=== PATIENT | female | born 1995 | race Caucasian/White ===

== ENCOUNTER 2018-03-14 22:33 | Emergency (ER) | payer BC, SELFPAY ==
[2018-03-14] MEDS ORDERED: Ondansetron HCl/PF 4 MG/2 ML Vial ONE (22:56)
[2018-03-14] MEDS ORDERED: Morphine 2 MG/ML SYRINGE ONE (22:56)
--- NOTE | 2018-03-14 23:33 | RAD ---
THREE VIEW RIGHT WRIST: 03/14/18 INDICATION: Right wrist deformity, injury and pain. FINDINGS: There is a comminuted, impacted distal radial fracture centered a the metaphyseal region with extensi on to the articular surface. An ulnar styloid avulsion fracture is also present. There is soft tissue swelling. IMPRESSION: Distal radial and ulnar fractures. POS: [facility]
--- NOTE | 2018-03-14 23:34 | RAD ---
TWO VIEW RIGHT ELBOW 03/14/18 INDICATION: Injury, pain. FINDINGS: No fracture or dislocation of the right elbow. IMPRESSION: No acute osseous abnormality. POS: [facility]
--- NOTE | 2018-03-15 08:29 | RAD ---
RIGHT WRIST 2 VIEWS: HISTORY: Wrist fracture. COMPARISON: 03/14/18. FINDINGS: Overlying fiberglass splint obscures detail. There has been partial reduction of the posterior displ acement and tilt of the distal radial fracture. Mild dorsal tilt remains. One-quarter shaft width l ateral displacement is now evident. Ulnar styloid avulsion again demonstrated. Other findings are stable. POS: [facility]
== END 2018-03-15 02:15 | disposition home or self-care (01) ==
LOC: ERS 22:33
DX: S52.611A Displaced fracture of right ulna styloid process, initial encounter for closed fracture (principal); S52.501A Unspecified fracture of the lower end of right radius, initial encounter for closed fracture; F32.9 Major depressive disorder, single episode, unspecified; V43.52XA Car driver injured in collision with other type car in traffic accident, initial encounter
CPT/HCPCS: 25605; 96374; 96375; J2270; J2405

== ENCOUNTER 2018-03-19 09:53 | Day surgery (SDC) | payer BC, OTHER ==
[2018-03-19] MEDS ORDERED: Bupivacaine HCl 0.5%/Epinephrine 1:200,000/PF 30 ml Vial ONE (10:36)
[2018-03-19] MEDS ORDERED: Ketorolac Tromethamine 30 MG/ML VIAL ONE (10:43)
[2018-03-19] MEDS ORDERED: PROPOFOL 200 MG/20 ML VIAL ONE (10:43)
[2018-03-19] MEDS ORDERED: Ondansetron HCl/PF 4 MG/2 ML Vial ONE (10:43)
[2018-03-19] MEDS ORDERED: Lidocaine 1% PF 5 ML VIAL ONE (10:43)
[2018-03-19] MEDS ORDERED: Dexamethasone 20 MG/5 ML VIAL ONE (10:43)
[2018-03-19] MEDS ORDERED: Midazolam HCl 2 mg/2 ml Vial ONE (11:01)
[2018-03-19] MEDS ORDERED: CEFAZOLIN/Water 2 GM/20 ML SYRINGE ONE (11:02)
[2018-03-19] MEDS ORDERED: Fentanyl 100 MCG/2 ML VIAL ONE ×5 (11:02→13:47)
[2018-03-19 11:17] LABS: BHCG - Serum Negative (NEGATIVE); Pregs Control Bar Appear? YES (CONTROL BAR)
[2018-03-19 11:18] LABS: Pregs Control Background? CLEAR/WHITE (CLR/WHITE)
[2018-03-19] MEDS ORDERED: Bupivacaine PF 0.5% 30 ML VIAL ONE (11:35)
[2018-03-19] MEDS ORDERED: HYDROmorphone 2 MG/ML VIAL ONE (13:22)
[2018-03-19] MEDS ORDERED: HYDROcodone/Acetaminophen 5/325 mg Tablet ONE (15:08)
--- NOTE | 2018-03-19 18:42 | RAD ---
3 INTRAOPERATIVE FLUOROSCOPIC VIEWS OF RIGHT WRIST: Date: 03/19/18 HISTORY: Open reduction and internal fixation right radius. COMPARISON: 03/15/18. FINDINGS: There is a volar plate and multiple screws transfixing the previously noted comminuted fracture invol ving the distal right radial metaphysis. There is improvement in alignment of the fracture fragments. No hardware complication is appreciated on this exam. Fracture of the ulnar styloid process is less well appreciated on this exam. FLUOROSCOPY: Total fluoroscopy time is 8.1 seconds and total dose is 0.19 mGy*cm^2. IMPRESSION: Internal fixation comminuted intraarticular fracture distal right radial metaphysis. POS: [facility]
--- NOTE | 2018-03-20 14:18 | OP ---
DATE OF SURGERY: 03/19/2018 PREOPERATIVE DIAGNOSIS: Right distal radius fracture, extra-articular. POSTOPERATIVE DIAGNOSIS: Right distal radius fracture, extra-articular. SURGICAL PROCEDURE: Open reduction internal fixation right distal radius. ANESTHESIA: General. SURGEON: Rogelio Vergara M.D. ENDOSCOPE TECHNICIAN: Josh Alexander PA-C. TOURNIQUET TIME: 34 minutes at 300 mmHg. IMPLANTS: Synthes 2-hole 2.4 mm variable angle 2 column plate. BLOOD LOSS: Zero. COMPLICATIONS: None. DRAINS: None. SPECIMENS: None. INDICATIONS: The patient is a 22-year-old lady status post distal radius fracture with dorsal displa cement and radial translation. After discussion with patient including risks and benefits, we decide d to proceed with open reduction and internal fixation. The risks include, but are not limited to bl eeding, infection, nerve injury, DVT, PE, malunion, nonunion, hardware symptoms, loss of limb or life . The patient appears to understand and does wish to proceed. Consent has been obtained. PROCEDURE: The patient was brought to the operating room and timeout performed followed by induction of general anesthesia. She was then positioned supine on the OR table with the right arm on an arm board. Next, a sterile prep and drape was performed of the right upper extremity. The limb was then exsanguinated with Esmarch bandage, tourniquet inflated to 250 mmHg. A volar incision was made at t he distal radius. After skin was sharply incised, dissection was carried down bluntly identifying th e flexor carpi radialis and the brachioradialis tendon exploiting the interval between these two tend ons. The neurovascular bundle was identified and reflected radially. Next, the pronator quadratus w as identified, resected off of the radial border of the distal radius and reflected toward the midlin e exposing the underlying distal radius and its fracture. The fracture was then reduced under direct visualization. Once acceptably reduced, a 2-hole volar two column plate was applied to the distal r adius and held in place with a single 2.7 mm cortical screw along the longitudinal limb of the plate. Next, AP, lateral C-arm images were obtained to confirm appropriate reduction of the fracture and a ppropriate positioning of the hardware. Once confirmed, four 2.4 mm locking were placed in the horiz ontal limb of the plate gaining fixation of the distal fragment. This was followed by an additional 2.7 mm screw proximally. At the completion of this, final AP, lateral C-arm images showed anatomic a lignment of the fracture. The wound was then irrigated with bulb syringe and then closed in layers w ith 2-0 Vicryl followed by nylon for the skin. A Xeroform gauze, Webril, and fiberglass splint was a pplied to the arm and then patient was transferred to recovery room in stable condition. There were no complications. She tolerated the procedure well.
== END 2018-03-19 15:55 | disposition home or self-care (01) ==
LOC: SDC 09:53
PROVIDERS: ATTEND Orthopaedic Surgery
PROC: 0PSH04Z Reposition Right Radius with Internal Fixation Device, Open Approach (ICD-10-PCS; principal; 2018-03-19)
DX: S52.551A Other extraarticular fracture of lower end of right radius, initial encounter for closed fracture (principal); V89.2XXA Person injured in unspecified motor-vehicle accident, traffic, initial encounter
CPT/HCPCS: 36415; 76001; 84703; 96374; 96375; 96376; C1713; J0670; J1100; J1170; J1885; J2001; J2250; J2405; J2704; J3010; S0020